=== PATIENT | female | born 1980 | race Caucasian/White ===

== ENCOUNTER 2018-09-28 11:49 | Emergency (ER) | payer BC ==
[2018-09-28] MEDS ORDERED: Morphine 4 MG/ML Carpuject ONE (12:17)
[2018-09-28] MEDS ORDERED: Ondansetron PF 4 MG/2 ML Vial ONE (12:17)
[2018-09-28 12:22] LABS: #Basophils 0.2 thou/uL (0.0-0.2); #Eosinphils 0.1 thou/uL (0.0-0.7); #Lymphocytes 4.1 thou/uL (1.20-3.40); #Monocytes 0.9 thou/uL (0.11-0.59); #Neutrophils 6.1 thou/uL (1.40-6.50); %Basophils 1.5 % (0.0-1.0); %Lymphocytes 35.8 % (21.0-51.0); %Monocytes 7.9 % (0.0-10.0); %Neutrophils 53.9 % (42.0-75.0); Hemoglobin 14.4 g/dL (12.0-16.0); Mean Corpuscular HGB CONC 33.8 g/dL (32.0-36.0); Mean Platelet Volume 9.7 fL (7.4-10.4); Platelet Count 206 thou/uL (130-400); RBC Distribution Width 10.2 % (11.5-14.5); Red Blood Cell (RBC) Count 4.78 mill/uL (4.20-5.40); White Blood Cell (WBC) Count 11.3 thou/uL (4.8-10.8)
[2018-09-28 12:25] LABS: BHCG - Serum Negative (NEGATIVE); Pregs Control Background? CLEAR/WHITE (CLR/WHITE); Pregs Control Bar Appear? YES (CONTROL BAR)
[2018-09-28 12:33] LABS: ALT (SGPT) 11 U/L (8-55); AST (SGOT) 17 U/L (5-34); Albumin 4.6 g/dL (3.5-5.0); Alkaline Phosphatase 42 U/L (40-150); Anion Gap 17 mmol/L (10-20); BUN (Urea Nitrogen) 15 mg/dL (7.0-18.7); Bilirubin, Total 2.2 mg/dL (0.2-1.2); Calc. Creatinine Clearance 0 mL/min (70-130); Carbon Dioxide 21 mmol/L (22-29); Chloride 103 mmol/L (98-107); Estimated GFR-MDRD 63; Globulin 3.1 g/dL (2.4-3.5); Glucose 86 mg/dL (70-105); Potassium 4.1 mmol/L (3.5-5.1); Protein, Total 7.7 g/dL (6.0-8.3); Sodium 137 mmol/L (136-145)
[2018-09-28] MEDS ORDERED: Sterile Water 10 ML ONE (13:08)
[2018-09-28] MEDS ORDERED: methylPREDNISolone Sod Succ/PF 125 MG/2 ML VIAL ONE (13:08)
[2018-09-28] MEDS ORDERED: Diazepam 5 MG TAB ONE (13:08)
[2018-09-28] MEDS ORDERED: Morphine 4 MG/ML VIAL ONE (13:16)
--- NOTE | 2018-09-28 13:26 | CT ---
CT ABDOMEN AND PELVIS: DATE: 09/28/2018. COMPARISON: 02/21/2013. HISTORY: Left flank pain, back pain. TECHNIQUE: Axial CT imaging is obtained at 5 mm intervals from lung bases through pubic symphysis without contra st. Coronal reformatted imaging obtained. FINDINGS: The lack of contrast media limits assessment of the viscera, bowel, vascular structures, and for lymp hadenopathy. The imaged lung bases are grossly unremarkable. No free intraperitoneal air is evident. The liver, gallbladder, spleen, pancreas, and adrenal glands are grossly unremarkable. No nephrolithiasis or hydronephrosis is noted on either side. Two low-density areas are seen within the mid pole lateral cortex of the right kidney, the larger juan david suring 1 cm, likely representing a small cyst. There is an IUD within the uterus. Limited assessment of the bowel demonstrates no evidence for obstruction or discrete focal inflammato ry change. The appendix appears grossly unremarkable. There is a small fat-containing hernia in the periumbilic al region superior to the umbilicus, best seen on axial image 28. Vague low-density area and left hemipelvis may represent a small left ovarian cyst or dominant follic le measuring in the 1.6 cm range. Review of the osseous structures demonstrates no worrisome lytic or blastic lesions. IMPRESSION: No evidence for obstructive uropathy. POS: [facility]
[2018-09-28 13:44] LABS: Bilirubin Negative (Negative); Blood, Urine Negative (Negative); Clarity Cloudy (Clear); Glucose, Urine (Dipstick) Negative (Negative); Leukocyte Trace (Negative); Nitrite Positive (Negative); Protein, Urine (Dipstick) Negative (Neg-Trace); Specific Gravity, Urine 1.015 (1.005-1.030); Urobilinogen 0.2 mg/dL (0.2-1.0); pH, Urine 8.5 (5.0-9.0)
[2018-09-28 13:49] LABS: Bacteria/HPF 3+ HPF (None Seen); Oval Fat Bodies/HPF Rare HPF (None Seen); RBC/HPF 0-3 HPF (0-3)
[2018-09-28] MEDS ORDERED: cefTRIAXone\\ROCEPHIN 1 GM VIAL ONE (14:56)
[2018-09-28] MEDS ORDERED: Sodium Chloride 0.9% 100 ML ONE (14:57)
--- NOTE | 2018-09-28 16:24 | ULT ---
PELVIC ULTRASOUND: 09/28/18 HISTORY: Bilateral lower back pain. FINDINGS: Multiple transabdominal sonographic images of the pelvis are obtained. Endovaginal sonographic images were not obtained. FINDINGS: The uterus demonstrates a normal sonographic appearance and measures 11.8 cm x 4 cm x 4.3 cm. There i s a linear echogenic structure seen within the endometrial canal which does demonstrate posterior sha dowing and is compatible with an intrauterine contraceptive device which is noted on the CT exam obta ined earlier on today's date. The uterus otherwise has a normal sonographic appearance. The right ovary demonstrates normal sonographic appearance with peripheral follicles seen. The right ovary measures 2.7 cm x 3.7 cm x 1.7 cm. The left ovary measures 2.5 cm x 3.2 cm x 2.5 cm. A 2.6 cm anechoic structure is seen within the left ovary demonstrating characteristics most compatible with a ovarian cyst. This correlates with CT sca n finding. Doppler evaluation of each ovary with spectral analysis and color flow evaluation demonstrates arteri al and venous flow in each ovary. No free fluid is seen in the cul-de-sac. IMPRESSION: 1. Small left ovarian cyst. 2. T-shaped intrauterine contraceptive device in the endometrial canal. POS: [facility]
== END 2018-09-28 15:45 | disposition home or self-care (01) ==
LOC: SCSER 11:49
DX: N12 Tubulo-interstitial nephritis, not specified as acute or chronic (principal); N83.202 Unspecified ovarian cyst, left side; Q61.3 Polycystic kidney, unspecified
CPT/HCPCS: 74176; 76856; 80053; 81003; 81015; 84703; 85025; 87077; 87086; 87186; 93976; 96361; 96365; 96367; 96375; 96376; A4216; J0696; J2270; J2405; J2930; J7050

== ENCOUNTER 2018-09-30 11:50 | Emergency (ER) | payer BC ==
[2018-09-30] MEDS ORDERED: Ondansetron PF 4 MG/2 ML Vial ONE (12:06)
[2018-09-30] MEDS ORDERED: Morphine 4 MG/ML VIAL ONE ×2 (12:32→15:53)
[2018-09-30] MEDS ORDERED: Promethazine HCl 25 MG/ML VIAL ONE (12:34)
[2018-09-30 12:41] LABS: #Basophils 0.2 thou/uL (0.0-0.2); #Eosinphils 0.2 thou/uL (0.0-0.7); #Lymphocytes 4.5 thou/uL (1.20-3.40); #Neutrophils 5.5 thou/uL (1.40-6.50); %Basophils 1.6 % (0.0-1.0); %Eosinophils 1.5 % (0.0-10.0); %Monocytes 8.5 % (0.0-10.0); %Neutrophils 48.5 % (42.0-75.0); Mean Corpuscular Hemoglobin 30.7 pg (27.0-31.0); Mean Corpuscular Volume 90.5 fL (78.0-98.0); Mean Platelet Volume 10.7 fL (7.4-10.4); Platelet Count 170 thou/uL (130-400); Red Blood Cell (RBC) Count 4.23 mill/uL (4.20-5.40); White Blood Cell (WBC) Count 11.3 thou/uL (4.8-10.8)
[2018-09-30 12:50] LABS: BHCG - Serum Negative (NEGATIVE); Pregs Control Background? CLEAR/WHITE (CLR/WHITE); Pregs Control Bar Appear? YES (CONTROL BAR)
[2018-09-30 12:59] LABS: ALT (SGPT) 10 U/L (8-55); AST (SGOT) 15 U/L (5-34); Albumin 4.2 g/dL (3.5-5.0); Alkaline Phosphatase 33 U/L (40-150); Anion Gap 15 mmol/L (10-20); BUN (Urea Nitrogen) 13 mg/dL (7.0-18.7); Bilirubin, Total 1.3 mg/dL (0.2-1.2); Calc. Creatinine Clearance 0 mL/min (70-130); Calcium 9.5 mg/dL (7.8-10.44); Carbon Dioxide 21 mmol/L (22-29); Chloride 107 mmol/L (98-107); Estimated GFR-MDRD 60; Globulin 2.6 g/dL (2.4-3.5); Glucose 85 mg/dL (70-105); Lipase 10 U/L (8-78); Protein, Total 6.8 g/dL (6.0-8.3); Sodium 139 mmol/L (136-145)
[2018-09-30 13:27] LABS: Bilirubin Negative (Negative); Blood, Urine Negative (Negative); Clarity Clear (Clear); Glucose, Urine (Dipstick) Negative (Negative); Leukocyte Negative (Negative); Nitrite Negative (Negative); Protein, Urine (Dipstick) Negative (Neg-Trace); Specific Gravity, Urine 1.015 (1.005-1.030); Urobilinogen 0.2 mg/dL (0.2-1.0); pH, Urine 7.5 (5.0-9.0)
--- NOTE | 2018-09-30 15:42 | MRI ---
MRI LUMBAR SPINE WITH AND WITHOUT CONTRAST 09/30/18 Multiplanar and multisequential imaging lumbar spine obtained. INDICATIONS: Back pain. FINDINGS: The lumbar vertebrae maintain normal height and alignment. Disc spaces are normally maintained and ex hibit normal T2 signal. There is no evidence of disc bulge or disc protrusion at any of the lumbar l evels. There is no central canal or foraminal stenosis identified in the lumbar spine. Small cystic lesions are seen in the right kidney measuring up to 1 to 1.5 cm. IMPRESSION: Unremarkable MRI of the lumbar spine. POS: [facility]
[2018-09-30 15:48] LABS: Lactic Acid 0.5 mmol/L (0.5-2.2)
[2018-09-30] MEDS ORDERED: Sodium Chloride 0.9% 100 ML ONE (15:53)
[2018-09-30] MEDS ORDERED: cefTRIAXone\\ROCEPHIN 1 GM VIAL ONE (15:53)
== END 2018-09-30 16:35 | disposition home or self-care (01) ==
LOC: SCSER 11:50
DX: N12 Tubulo-interstitial nephritis, not specified as acute or chronic (principal); E28.2 Polycystic ovarian syndrome; R20.1 Hypoesthesia of skin; Z79.899 Other long term (current) drug therapy
CPT/HCPCS: 36415; 72158; 80053; 81003; 83605; 83690; 84703; 85025; 87086; 96361; 96365; 96367; 96375; 96376; J0696; J2270; J2405; J2550; J7050